=== PATIENT | male | born 1970 | race Caucasian/White ===

== ENCOUNTER 2022-04-02 12:41 | Emergency (ER) | payer SELFPAY ==
[~2022-04-02] VITALS: Ht 167.6 cm; Wt 73.6 kg
[2022-04-02] MEDS ORDERED: GABAPENTIN100 MG PO (13:14)
[2022-04-02] MEDS ORDERED: SERTRALINE50 MG PO (13:14)
[2022-04-02] MEDS ORDERED: AMITRIPTYLINE H10 MG PO (13:15)
[2022-04-02] MEDS ORDERED: TRAMADOL HCL50 MG PO (13:16)
[2022-04-02] MEDS ORDERED: HYDROCO/APAP1 TA9 PO (13:17)
[2022-04-02] MEDS ORDERED: GENTAMICIN SULF5 ML OU (15:43)
[2022-04-02 15:46] VITALS: BP 157/95
== END 2022-04-02 15:55 | disposition home or self-care (01) | DRG 125 ==
LOC: ED 12:41
DX: H57.13 Ocular pain, bilateral (principal); H10.213 Acute toxic conjunctivitis, bilateral; W86.8XXA Exposure to other electric current, initial encounter

== ENCOUNTER 2022-05-03 20:51 | Emergency (ER) | payer OTHER ==
[2022-05-03] VITALS (13 sets, daily range): BP systolic 141–171; BP diastolic 81–105
[~2022-05-03] VITALS: Ht 167.6 cm; Wt 70.0 kg
[~2022-05-03 20:51] MED LIST: AMITRIPTYLINE H10 MG PO; GABAPENTIN100 MG PO; GENTAMICIN SULF5 ML OU; HYDROCO/APAP1 TA9 PO; SERTRALINE50 MG PO; TRAMADOL HCL50 MG PO
[2022-05-03 21:27] LABS: BASO% 0.3 % (0-3); EOS% 1.9 % (0-8); HEMATOCRIT 41.3 % (39.0-50.0); HEMOGLOBIN 13.9 g/dl (14.0-18.0); IMMATURE GRANULOCYTES 0.1 % (0.0-5.0); LYMPH% 31.6 % (15-41); MEAN CELL VOLUME 87.3 fL CALC (80.0-100.0); MEAN CORPUSCULAR HGB 29.4 pG CALC (26.0-32.0); MEAN CORPUSCULAR HGB CONC 33.7 g/dL CAL (32.0-36.0); NEUT# 5.83 thou/uL (1.82-7.42); NEUT% 61.1 % (42-76); RED BLOOD COUNT 4.73 mill/uL (4.70-6.10); RED CELL DISTRI WIDTH 12.2 % (11.5-15.5)
[2022-05-03 21:37] LABS: URINE BILIRUBIN - DIPSTICK NEGATIVE (NEGATIVE); URINE BLOOD DIPSTICK NEGATIVE (NEGATIVE); URINE COLOR YELLOW; URINE GLUCOSE - DIPSTICK 100 mg/dL (NEGATIVE); URINE KETONE NEGATIVE (NEGATIVE); URINE LEUK ESTERASE NEGATIVE (NEGATIVE); URINE PH 5.5 (4.5-8.0); URINE PROTEIN - DIPSTICK NEGATIVE (NEG-TRACE); URINE SPECIFIC GRAVITY >=1.030; URINE UROBILINOGEN - DIPSTICK 0.2 E.U./dL (0.2)
[2022-05-03 21:40] LABS: ALBUMIN 4.6 g/dL (3.2-5.0); ALKALINE PHOSPHATASE 92 u/l (38-126); ANION GAP 11 (6-22 (CALC)); BILIRUBIN, TOTAL 0.3 mg/dL (0.2-1.3); BUN 14 mg/dL (9-20); BUN/CREATININE RATIO 19 (12-20 (CALC)); CARBON DIOXIDE 24 mmol/l (22-30); CHLORIDE 106 mmol/l (95-108); CREATININE 0.7 mg/dL (0.7-1.3); GFR FOR AFR.AMER. > 60 ML/MIN (>=60 (CALC)); GFR OTHER RACES > 60 ML/MIN (>=60 (CALC)); POTASSIUM 3.5 mmol/l (3.5-5.1); SGOT/AST 34 u/l (17-59); SODIUM 138 mmol/l (137-146); TOTAL PROTEIN 7.5 g/dL (6.3-8.2)
[2022-05-03 21:48] LABS: URINE NITRITE - DIPSTICK NEGATIVE (Negative)
[2022-05-03] MEDS ORDERED: FLONASE AL50 MCG/ACT (22:50)
[2022-05-03] MEDS ORDERED: ONDANSETRON4 MG PO (23:12)
[2022-05-03] MEDS ORDERED: ULTRAM50 MG PO (23:13)
== END 2022-05-03 23:35 | disposition home or self-care (01) | DRG 605 ==
LOC: ED 20:51
PROVIDERS: Emergency Medicine
PROC: 0HQ1XZZ Repair Face Skin, External Approach (ICD-10-PCS; principal; 2022-05-03)
DX: S01.81XA Laceration without foreign body of other part of head, initial encounter (principal); R42 Dizziness and giddiness; W18.30XA Fall on same level, unspecified, initial encounter; Z20.822 Contact with and (suspected) exposure to COVID-19